=== PATIENT | male | born 1935 | race Caucasian/White ===

== ENCOUNTER → 2016-09-13 | Outpatient (CLI) | payer MEDICARE, OTHER ==
[~2016-09-13] MED LIST: DIG0125T PO; FURO40TA4 PO; FUROSEMIDE 40 MG/4 ML VIAL IV ONE; FUROSEMIDE 40 MG/4 ML VIAL ONE; IVAB1.7T PO; POTA20TA53 PO; POTASSIUM CHL 20 Meq TABLET PO ONE; PRAV20TA3 PO; TOLT2CAP7 PO; TRIA0.5C10 BC
[2016-09-13 14:00] VITALS: BP 146/75
[2016-09-13 16:59] LABS: Potassium 4.4 mmol/L (3.5-5.1)
== END | disposition home or self-care (01) ==
LOC: CHF HDHVI 12:56
PROVIDERS: ATTEND Internal Medicine Cardiovascular Disease
DX: R94.4 Abnormal results of kidney function studies (principal); I10 Essential (primary) hypertension
CPT/HCPCS: 36415; 82565; 84132; 84520; 94620; 96365; G0463

== ENCOUNTER → 2016-11-09 | Outpatient (CLI) | payer MEDICARE, OTHER ==
[~2016-11-09] VITALS: Ht 157.5 cm; Wt 84.8 kg
[~2016-11-09] MED LIST changes: +AMBR1TAB PO; +CHOL1TAB42 PO; +CYANOCOBALAMIN (B-12) 1000 MCG/1 ML VIAL IM ONE; +CYANOCOBALAMIN (B-12) 1000 MCG/1 ML VIAL ONE; -DIG0125T PO; -FUROSEMIDE 40 MG/4 ML VIAL IV ONE; -FUROSEMIDE 40 MG/4 ML VIAL ONE; +METO5TAB56 PO; +NAPR220C PO; -POTA20TA53 PO; -POTASSIUM CHL 20 Meq TABLET PO ONE; -TRIA0.5C10 BC; +VANCOMYCIN 1GM/250ML D5W 250 ML IV ONE; +VITA400T4 PO; +cefTRIAXone 1GM/50ML D5W 50 ML IV ONE
[2016-11-09 13:55] VITALS: BP 132/63
[2016-11-09 16:15] LABS: Basophils # (auto) 0.1 uL; Basophils % (auto) 0.8 % (0.0-2.0); CONDITION Y; Eosinophils # (auto) 0.5 uL; Eosinophils % (auto) 6.4 % (0.0-7.0); Hematocrit 42.5 % (41.0-53.0); Hemoglobin 14.1 g/dL (13.5-17.5); Lymphocytes # (auto) 1.5 uL; Lymphocytes % (auto) 18.9 % (10.0-50.0); Mean Corpuscular Hemoglobin 31.1 pg (28.0-32.0); Mean Corpuscular Hgb Conc. 33.1 g/dL (32.0-36.0); Monocytes # (auto) 0.5 uL; Monocytes % (auto) 6.5 % (0.0-12.0); Neutrophils # (auto) 5.2 uL; Neutrophils % (auto) 67.4 % (37.0-80.0); Platelet Count (auto) 267 10^3/uL (140-450); Red Cell Distribution Width 15.2 % (11.6-16.0); White Blood Cell 7.7 10^3/uL (4.4-10.8)
[2016-11-09 16:26] LABS: BUN/Creatinine Ratio 20.9; Calcium 8.9 mg/dL (8.5-10.1); Magnesium 2.4 mg/dL (1.6-2.6); Potassium 4.2 mmol/L (3.5-5.1)
[2016-11-09 16:40] VITALS: BP 129/65
== END | disposition home or self-care (01) ==
LOC: CHF HDHVI 13:57
PROVIDERS: ATTEND Internal Medicine Cardiovascular Disease
DX: I10 Essential (primary) hypertension (principal); D64.9 Anemia, unspecified; E83.42 Hypomagnesemia
CPT/HCPCS: 36415; 80048; 83735; 85025; 96365; 96367; 96372; G0463; J0696; J1642; J3370; J3420; 96375

== ENCOUNTER → 2016-11-15 | Outpatient (CLI) | payer MEDICARE, OTHER ==
[~2016-11-15] MED LIST changes: -CYANOCOBALAMIN (B-12) 1000 MCG/1 ML VIAL IM ONE; -CYANOCOBALAMIN (B-12) 1000 MCG/1 ML VIAL ONE; -VANCOMYCIN 1GM/250ML D5W 250 ML IV ONE; -cefTRIAXone 1GM/50ML D5W 50 ML IV ONE
[2016-11-15 12:30] VITALS: BP 92/43
[2016-11-15 13:45] VITALS: BP 91/42
[2016-11-15 16:04] LABS: Basophils # (auto) 0 uL; Basophils % (auto) 0.5 % (0.0-2.0); CONDITION Y; Eosinophils # (auto) 0.4 uL; Eosinophils % (auto) 4.4 % (0.0-7.0); Hematocrit 40.9 % (41.0-53.0); Hemoglobin 13.6 g/dL (13.5-17.5); Lymphocytes # (auto) 1.6 uL; Lymphocytes % (auto) 19.5 % (10.0-50.0); Mean Corpuscular Hemoglobin 31.5 pg (28.0-32.0); Mean Corpuscular Hgb Conc. 33.3 g/dL (32.0-36.0); Mean Corpuscular Volume 94.5 fL (80.0-100.0); Mean Platelet Volume 10.9 fL (7.4-10.4); Monocytes # (auto) 0.6 uL; Monocytes % (auto) 7.2 % (0.0-12.0); Neutrophils # (auto) 5.5 uL; Neutrophils % (auto) 68.4 % (37.0-80.0); Platelet Count (auto) 277 10^3/uL (140-450); Red Cell Distribution Width 15.8 % (11.6-16.0); White Blood Cell 8.1 10^3/uL (4.4-10.8)
[2016-11-15 16:20] LABS: Potassium 4.2 mmol/L (3.5-5.1)
== END | disposition home or self-care (01) ==
LOC: Rad HDHVI 12:21
PROVIDERS: ATTEND Internal Medicine Cardiovascular Disease
DX: I73.9 Peripheral vascular disease, unspecified (principal); D64.9 Anemia, unspecified; E87.6 Hypokalemia; L03.90 Cellulitis, unspecified; R94.4 Abnormal results of kidney function studies
CPT/HCPCS: 36415; 80202; 82565; 84132; 84520; 85025; 93926; G0463

== ENCOUNTER 2017-05-24 13:38 | Inpatient (IN) | payer MEDICARE, OTHER ==
[~2017-05-24] VITALS: Ht 182.9 cm; Wt 84.0 kg
[2017-05-24] MEDS ORDERED: SODIUM CHLORIDE 0.9% 500 ML IVB ONE (14:15)
[2017-05-24 14:47] LABS: Basophils # (auto) 0 uL; Basophils % (auto) 0.7 % (0.0-2.0); Eosinophils # (auto) 0.2 uL; Eosinophils % (auto) 2.8 % (0.0-7.0); Hematocrit 43.5 % (41.0-53.0); Hemoglobin 14.6 g/dL (13.5-17.5); Lymphocytes # (auto) 1.1 uL; Lymphocytes % (auto) 16.5 % (10.0-50.0); Mean Corpuscular Hemoglobin 32.3 pg (28.0-32.0); Mean Corpuscular Hgb Conc. 33.7 g/dL (32.0-36.0); Mean Corpuscular Volume 95.8 fL (80.0-100.0); Monocytes # (auto) 0.5 uL; Monocytes % (auto) 7.5 % (0.0-12.0); Neutrophils # (auto) 4.9 uL; Neutrophils % (auto) 72.5 % (37.0-80.0); Nucleated Red Blood Cells % 0.1 %; Platelet Count (auto) 233 10^3/uL (140-450); Red Blood Cells 4.54 10^6/uL (4.5-5.90); Red Cell Distribution Width 14.3 % (11.8-14.3); White Blood Cell 6.8 10^3/uL (4.4-10.8)
[2017-05-24 14:58] LABS: INR 0.98 (0.9-1.15); Partial Thromboplastin Time 27.1 sec (22.64-33.71); Prothrombin Time 10.7 sec (9.37-12.3)
[2017-05-24 15:30] LABS: Albumin 3.3 g/dL (3.4-5.0); BUN/Creatinine Ratio 23.1; Bilirubin, Total 0.2 mg/dL (0.2-1.0); Calcium 8.8 mg/dL (8.5-10.1); Magnesium 2.7 mg/dL (1.6-2.6); Potassium 4.1 mmol/L (3.5-5.1); Total Protein 7.3 g/dL (6.4-8.2)
[2017-05-24] MEDS ORDERED: SODIUM CHLORIDE 0.9% 1,000 ML IV ONE (17:00)
[2017-05-24] MEDS ORDERED: HYDROmorphone HCL 2 MG/ML VL IV PRN (17:00)
[2017-05-24] MEDS ORDERED: ONDANSETRON HCL 4 MG/2 ML VIAL IV PRN (17:00)
[2017-05-24] MEDS ORDERED: PROMETHAZINE HCL 25 MG/ML 1ML IV PRN (17:15)
[2017-05-24] MEDS ORDERED: FURO40TA PO (17:50)
[2017-05-24] MEDS ORDERED: POTA10TA51 PO (17:50)
[2017-05-24] MEDS ORDERED: SPIR25TA88 PO (17:50)
[2017-05-24] MEDS ORDERED: DILT120T8 PO (17:53)
[2017-05-24] MEDS ORDERED: PRAV20TA3 PO (17:55)
[2017-05-24] MEDS ORDERED: MULTTAB61 PO (17:56)
[2017-05-24] MEDS ORDERED: METO-158 PO (17:56)
[2017-05-24] MEDS ORDERED: NITR0.4S29 SL (17:57)
[2017-05-24] MEDS ORDERED: CHOL20007 PO (17:59)
[2017-05-24] MEDS ORDERED: VITA400T4 PO (18:00)
[2017-05-24] MEDS ORDERED: TRIA0.1P11 TOP (18:01)
[2017-05-24] MEDS ORDERED: HYDR-3682 PO (18:01)
[2017-05-24] MEDS ORDERED: TOLT2CAP7 PO (18:04)
[2017-05-24 20:50] VITALS: BP 146/85
[2017-05-24] MEDS: metroNIDAZOLE 250MG/50 ML 50 ML IV SCH (22:10)
[2017-05-24] MEDS ORDERED: EPIN0.3I24 IJ (23:58)
[2017-05-24] MEDS ORDERED: METO-169 PO (23:58)
[2017-05-25 05:00] VITALS: BP 121/72
[2017-05-25] MEDS: metroNIDAZOLE 250MG/50 ML 50 ML IV SCH ×3 (05:36→21:47)
[2017-05-25 06:28] LABS: Basophils # (auto) 0 uL; Basophils % (auto) 0.8 % (0.0-2.0); Eosinophils # (auto) 0.3 uL; Eosinophils % (auto) 5.8 % (0.0-7.0); Hematocrit 41.9 % (41.0-53.0); Hemoglobin 14.1 g/dL (13.5-17.5); Lymphocytes # (auto) 1.1 uL; Lymphocytes % (auto) 20.7 % (10.0-50.0); Mean Corpuscular Hemoglobin 32.2 pg (28.0-32.0); Mean Corpuscular Hgb Conc. 33.6 g/dL (32.0-36.0); Mean Corpuscular Volume 95.7 fL (80.0-100.0); Monocytes # (auto) 0.5 uL; Monocytes % (auto) 8.9 % (0.0-12.0); Neutrophils # (auto) 3.4 uL; Neutrophils % (auto) 63.8 % (37.0-80.0); Platelet Count (auto) 220 10^3/uL (140-450); Red Blood Cells 4.37 10^6/uL (4.5-5.90); Red Cell Distribution Width 14.3 % (11.8-14.3); White Blood Cell 5.4 10^3/uL (4.4-10.8)
[2017-05-25 06:53] LABS: Potassium 4.2 mmol/L (3.5-5.1)
[2017-05-25 06:57] LABS: BUN/Creatinine Ratio 23.3; Bilirubin, Total 0.3 mg/dL (0.2-1.0); Calcium 8.5 mg/dL (8.5-10.1); Total Protein 6.6 g/dL (6.4-8.2)
[2017-05-25 09:00] VITALS: BP 133/76
[2017-05-25] MEDS: LEVOFLOXACIN 500MG 100 ML IV SCH (09:50)
[2017-05-25 11:28] LABS: Urine Bacteria NONE SEEN /hpf (None Seen); Urine Blood Negative /uL (Negative); Urine Specific Gravity 1.012 (1.001-1.035); Urine WBC 1 /hpf (0 - 3)
[2017-05-25 13:00] VITALS: BP 101/55
[2017-05-25 17:00] VITALS: BP 130/73
[2017-05-25 22:00] VITALS: BP 138/69
[2017-05-26 05:00] VITALS: BP 140/75
[2017-05-26] MEDS: metroNIDAZOLE 250MG/50 ML 50 ML IV SCH ×3 (06:58→21:36)
[2017-05-26 08:00] VITALS: BP 134/46
[2017-05-26] MEDS ORDERED: diphenhdrAMINE HCL 50 MG/1 ML VL ONE (08:24)
[2017-05-26] MEDS ORDERED: SODIUM CHLORIDE LOCK 10 ML ONE (08:24)
[2017-05-26] MEDS ORDERED: MIDAZOLAM HCL 5 MG/ML-1ML VIAL ONE (08:24)
[2017-05-26] MEDS ORDERED: fentaNYL CITRATE 100 MCG/2 ML VL ONE (08:24)
[2017-05-26 09:00] VITALS: BP 134/76
[2017-05-26] MEDS: LEVOFLOXACIN 500MG 100 ML IV SCH ×2 (10:00→12:30)
[2017-05-26 13:00] VITALS: BP 128/78
[2017-05-26 17:00] VITALS: BP 122/64
[2017-05-26 22:00] VITALS: BP 137/70
[2017-05-26] MEDS ORDERED: HYDROCORTISONE 100 MG/60 ML RECT ENEMA PR SCH (22:00)
[2017-05-27 05:00] VITALS: BP 110/68
[2017-05-27] MEDS: metroNIDAZOLE 250MG/50 ML 50 ML IV SCH ×2 (05:31→14:00)
[2017-05-27 06:13] LABS: Basophils # (auto) 0 uL; Basophils % (auto) 0.6 % (0.0-2.0); Eosinophils # (auto) 0.3 uL; Eosinophils % (auto) 4.5 % (0.0-7.0); Hematocrit 42.7 % (41.0-53.0); Hemoglobin 14.4 g/dL (13.5-17.5); Lymphocytes # (auto) 1.1 uL; Lymphocytes % (auto) 18.5 % (10.0-50.0); Mean Corpuscular Hemoglobin 32.4 pg (28.0-32.0); Mean Corpuscular Hgb Conc. 33.8 g/dL (32.0-36.0); Mean Corpuscular Volume 95.9 fL (80.0-100.0); Monocytes # (auto) 0.5 uL; Monocytes % (auto) 8.8 % (0.0-12.0); Neutrophils # (auto) 4.1 uL; Neutrophils % (auto) 67.6 % (37.0-80.0); Nucleated Red Blood Cells % 0.1 %; Platelet Count (auto) 215 10^3/uL (140-450); Red Blood Cells 4.45 10^6/uL (4.5-5.90); Red Cell Distribution Width 14.4 % (11.8-14.3)
[2017-05-27 06:22] LABS: Calcium 8.8 mg/dL (8.5-10.1); Potassium 3.6 mmol/L (3.5-5.1)
[2017-05-27 09:00] VITALS: BP 116/62
[2017-05-27] MEDS: LEVOFLOXACIN 500MG 100 ML IV SCH (09:57)
[2017-05-27 13:00] VITALS: BP 143/76
== END 2017-05-27 16:50 | disposition home or self-care (01) | DRG 394 ==
LOC: EDBD 13:38 → ER 13:38 → TELE 13:39 → TELE-WESTW 20:56
PROVIDERS: ADMIT Internal Medicine; ATTEND Internal Medicine
PROC: 0DBP8ZX Excision of Rectum, Via Natural or Artificial Opening Endoscopic, Diagnostic (ICD-10-PCS; principal; 2017-05-26 11:07)
DX: K62.89 Other specified diseases of anus and rectum (principal); E44.0 Moderate protein-calorie malnutrition; I27.20 Pulmonary hypertension, unspecified; I42.9 Cardiomyopathy, unspecified; K62.5 Hemorrhage of anus and rectum; K64.8 Other hemorrhoids; K52.9 Noninfective gastroenteritis and colitis, unspecified; J44.9 Chronic obstructive pulmonary disease, unspecified; E78.5 Hyperlipidemia, unspecified; F03.90 Unspecified dementia, unspecified severity, without behavioral disturbance, psychotic disturbance, mood disturbance, and anxiety; I10 Essential (primary) hypertension; I25.10 Atherosclerotic heart disease of native coronary artery without angina pectoris; I70.8 Atherosclerosis of other arteries; Z85.46 Personal history of malignant neoplasm of prostate; Z90.49 Acquired absence of other specified parts of digestive tract; Z93.3 Colostomy status; Z88.0 Allergy status to penicillin; Z68.25 Body mass index [BMI] 25.0-25.9, adult
CPT/HCPCS: 36415; 45331; 71045; 74176; 80048; 80053; 81001; 83735; 85025; 85610; 85730; 87081; 93005; 94761; 96361; 96374; 96375; J1956; J2250; J3490